=== PATIENT | female | born 2000 | race Caucasian/White ===

== ENCOUNTER 2019-11-12 18:05 | Emergency (ER) | payer OTHER, SELFPAY ==
[2019-11-12 18:08] VITALS: BP 116/75; PULSE 116; RESP 18; TEMP 37.1; O2SAT 98
--- NOTE | 2019-11-12 18:57 | ED.GENADULT ---
HPI - General Adult General Chief complaint: Abdominal Pain Stated complaint: LEFT KIDNEY PAIN FEVER MIGRAINE RED SPOTS ON BODY Time Seen by Provider: 11/12/19 18:37 Source: patient Mode of arrival: Ambulatory Limitations: no limitations History of Present Illness HPI narrative: 19-year-old female with frequent urinary tract infections was never been seen at this facility in the past here for evaluation which she thinks is a urinary tract infection. Started having dysuria couple days ago. Has lower back pain. Some nausea but no vomiting. States she has had kidney infections in the past. Today she started to develop subjective fevers and body aches. Has been taking azo for her symptoms. Also states she has a history of migraines. She states that she feels like she is having a migraine currently. No neck pain. States it feels like going for typical migraines. She is also having a rash on the palms of her hands and soles of her feet. This does not seem to be associated with the other to issues that brought her to the emergency department. States she has had this off and on since she was 14 years old. Has not seen Dermatology. States the rash is itchy. Not painful. No new exposures. Related Data Previous Rx's Medication Instructions Recorded [id number]-[id number] 1 cap PO Q4-6H PRN #10 cap 11/12/19 [Fioricet] sulfamethoxazole-trimethoprim 1 tab PO BID 14 Days #28 tab 11/12/19 [Bactrim DS] Review of Systems Constitutional Constitutional: Reports body ache(s), Reports chills, Reports fatigue, Reports fever(s) and Reports headache(s) Eyes Eyes: Denies itchy eyes ENT Ears, Nose, Mouth, and Throat: Reports headache(s) Cardiovascular Cardiovascular: Denies chest pain and Denies dyspnea Respiratory Respiratory: Denies dyspnea Gastrointestinal Gastrointestinal: Denies abdominal pain, Denies change in bowel habits, Reports nausea and Denies vomiting Genitourinary Genitourinary: Reports dysuria, Reports urinary hesitancy and Reports urinary urgency Genitourinary: Reports dysuria, Reports urinary hesitancy and Reports urinary urgency Musculoskeletal Musculoskeletal: Denies arthralgias, Reports back pain (Lower back) and Denies myalgias Integumentary/Breasts Skin/Breast: Reports rash Neurologic Neurologic: Denies behavioral changes and Reports headache(s) Psychiatric Psychiatric: Denies anxiety and Denies behavioral changes Endocrine Endocrine: Reports fatigue Hematologic/Lymphatic Hematologic/Lymphatic: Denies easy bleeding and Denies easy bruising Allergic/Immunologic Allergic/Immunologic: Denies urticaria and Denies itchy eyes Patient History Medical History Migraines (Acute) Social History marital status: lives independently: Yes Exam Initial Vital Signs Initial Vital Signs: Vital Signs Temperature 98.8 F 11/12/19 18:08 Pulse Rate 116 H 11/12/19 18:08 Respiratory Rate 18 11/12/19 18:08 Blood Pressure 116/75 11/12/19 18:08 Pulse Oximetry 98 11/12/19 18:08 Const General: cooperative and comfortable Limitations: mental status not altered HENMT Head: normal to inspection and normocephalic Resp Effort & Inspection: normal respiratory effort Auscultation: clear to auscultation bilaterally Cardio Rate: tachycardic Rhythm: regular rhythm GI Inspection: non-distended Palpation: soft, No firm and No tender Back/Spine/Pelvis Back: No CVA tenderness Skin Other: Patient with well-defined areas of redness located on both the palms of her hands with left being greater than right. No blistering. No pustules. Somewhere parents located on the soles of her feet. Neuro General: patient alert and patient awake Cognition: normal cognition Speech: speech normal Extrem General: normal to inspection and capillary refill normal Psych Appearance: grossly normal and well kempt Course Orders Ordered: ED Orders 11/12/19 18:24 Urine Culture Stat Urine Microscopic Stat 11/12/19 18:29 EKG-12 Lead Stat 11/12/19 19:25 Complete Blood Count AUTO DIFF Stat Comprehensive Metabolic Panel Stat Lipase Stat Partial Thromboplastin Time Stat Prothrombin Time INR Stat Discontinued Medications Acetaminophen/Butalbital/Caffeine (Fioricet) 1 each PO NOW ONE Stop: 11/12/19 18:58 Last Admin: 11/12/19 19:05 Dose: 1 each Documented by: TARIQ Trimethoprim/Sulfamethoxazole (Bactrim Ds) 1 tab PO NOW ONE Stop: 11/12/19 18:58 Last Admin: 11/12/19 19:05 Dose: 1 tab Documented by: TARIQ Vital Signs Vital signs: Vital Signs - 8 hr 11/12/19 19:56 Pulse Rate 75 Respiratory Rate 16 Blood Pressure 100/57 L Pulse Oximetry 100 Medical Decision Making Lab Data Lab results reviewed: Yes I reviewed the patient's lab results. Result diagrams: 11/12/19 19:25 11/12/19 19:25 Labs: Lab Results 11/12/19 11/12/19 11/12/19 Range/Units 18:24 19:25 19:25 WBC 13.5 H (4.5-11.0) X10^3/uL RBC 4.12 (4.0-5.2) X10^6/uL Hgb 12.9 (12.0-16.0) g/dL Hct 37.7 (36-46) % MCV 91.3 (80-100) fL MCH 31.4 (26-34) PG MCHC 34.4 (30-36) % RDW 12.9 (11.6-14.8) % Plt Count 285 (150-400) X10^3/uL Neut % (Auto) 72.1 (50-75) % Lymph % (Auto) 20.2 L (25-40) % [place] % (Auto) 6.8 (3-14) % Eos % (Auto) 0.2 L (2-4) % Baso % (Auto) 0.7 (0-2) % Neut # (Auto) 9800 H (2453-7117) /uL Lymph # (Auto) 2700 (5552-7092) /uL [place] # (Auto) 900 (0-900) /uL Eos # (Auto) 0 (0-450) /uL Baso # (Auto) 100 (0-100) /uL PT 14.9 H (10.1-12.7) SECONDS INR 1.3 (0.9-1.3) APTT 29 (26.4-36.2) SECONDS Sodium (137-145) mmol/L Potassium (3.4-5.1) mmol/L Chloride (98-107) mmol/L Carbon Dioxide (22-32) mmol/L BUN (7-17) mg/dL Creatinine (0.52-1.04) mg/dL Estimated GFR (>60) mL/min BUN/Creatinine Ratio (6-22) Glucose (70-100) mg/dL Calcium (8.4-10.2) mg/dL Total Bilirubin (0.2-1.3) mg/dL AST (14-36) IU/L ALT (<35) IU/L Alkaline Phosphatase (38-126) U/L Total Protein (6.3-8.2) g/dL Albumin (3.5-5.0) g/dL Globulin (1.7-4.1) g/dL Albumin/Globulin Ratio (1.0-2.8) Lipase (23-300) U/L Urine RBC 1-5/hpf (0-5/HPF) Urine WBC 10-30/hpf H (0-5/HPF) Ur Squamous Epith Cells 1-5 /hpf (0-5/HPF) Amorphous Sediment 1+ Urine Bacteria Many (>30) H (None) Urine Mucus 2+ H (Negative) Ur Culture Indicated? Specimen cultured 11/12/19 Range/Units 19:25 WBC (4.5-11.0) X10^3/uL RBC (4.0-5.2) X10^6/uL Hgb (12.0-16.0) g/dL Hct (36-46) % MCV (80-100) fL MCH (26-34) PG MCHC (30-36) % RDW (11.6-14.8) % Plt Count (150-400) X10^3/uL Neut % (Auto) (50-75) % Lymph % (Auto) (25-40) % [place] % (Auto) (3-14) % Eos % (Auto) (2-4) % Baso % (Auto) (0-2) % Neut # (Auto) (5491-3962) /uL Lymph # (Auto) (6878-4269) /uL [place] # (Auto) (0-900) /uL Eos # (Auto) (0-450) /uL Baso # (Auto) (0-100) /uL PT (10.1-12.7) SECONDS INR (0.9-1.3) APTT (26.4-36.2) SECONDS Sodium 137 (137-145) mmol/L Potassium 3.3 L (3.4-5.1) mmol/L Chloride 102 (98-107) mmol/L Carbon Dioxide 25 (22-32) mmol/L BUN 11 (7-17) mg/dL Creatinine 0.81 (0.52-1.04) mg/dL Estimated GFR > 60.0 (>60) mL/min BUN/Creatinine Ratio 13.6 (6-22) Glucose 103 H (70-100) mg/dL Calcium 9.1 (8.4-10.2) mg/dL Total Bilirubin 0.6 (0.2-1.3) mg/dL AST 16 (14-36) IU/L ALT 12 (<35) IU/L Alkaline Phosphatase 70 (38-126) U/L Total Protein 7.7 (6.3-8.2) g/dL Albumin 4.1 (3.5-5.0) g/dL Globulin 3.6 (1.7-4.1) g/dL Albumin/Globulin Ratio 1.1 (1.0-2.8) Lipase 45 (23-300) U/L Urine RBC (0-5/HPF) Urine WBC (0-5/HPF) Ur Squamous Epith Cells (0-5/HPF) Amorphous Sediment Urine Bacteria (None) Urine Mucus (Negative) Ur Culture Indicated? Point of Care Testing Test Results Negative Urine Dip Bedside Urine Glucose 100 mg/dl Bedside Urine Bilirubin + 1 Bedside Urine Ketone +++ 80 Urine Specific [place] 1.020 Bedside Urine Occult Blood ++ Bedside Urine pH 6.0 Bedside Urine Protein ++ 100 Bedside Urine Urobilinogen 1+ 2mg Bedside Urine Nitrite + Positive Bedside Urine Leukocytes ++ 125 Esterase Point of care testing: Point of Care Testing Test Results Negative Urine Dip Bedside Urine Glucose 100 mg/dl Bedside Urine Bilirubin + 1 Bedside Urine Ketone +++ 80 Urine Specific [place] 1.020 Bedside Urine Occult Blood ++ Bedside Urine pH 6.0 Bedside Urine Protein ++ 100 Bedside Urine Urobilinogen 1+ 2mg Bedside Urine Nitrite + Positive Bedside Urine Leukocytes ++ 125 Esterase MDM Narrative Medical decision making narrative: Patient's history and physical exam is consistent with the urinary tract infection. Given her lower back pain and her history there is concerned about pyelonephritis that she states that she has had ?kidney infections? several times in the past. She does not know what antibiotic she has been on in the past. Review of her medical record does not show any prior urine cultures in our system. Patient was given a dose of antibiotics here in the ER and she was able to tolerate it without vomiting. Will give her a prescription for antibiotics with dosages consistent with treatment of pyelonephritis. A urine culture was pending at the time of her discharge. Patient was informed that we would contact her if we needed to change any antibiotics based on this culture. Patient is also having headache. I do suspect that this is brought on by the infection that she is having in her urinary symptoms. Low suspicion for meningitis as she has no other symptoms consistent with this. Patient is also having a rash on her hands and soles of her feet. This is not new for her. Unsure the exact etiology of the rash however given her history with regard to this I feel that it is unrelated with the other issues that brought her in today. Informed her that she needed talk with her primary doctor about potentially getting in to see a casino cage cashier. Patient was given strict return precautions and follow-up instructions. She expressed understanding and agreement. Discharge Plan Departure Patient Disposition: Home Clinical Impression: Pyelonephritis, Rash Headache Qualifiers: Headache type: unspecified Headache chronicity pattern: unspecified pattern Intractability: not intractable Qualified Code(s): R51 - Headache Discharge Date/Time: 11/12/19 19:56 Instructions: DI for Kidney Infection Activity Restrictions/Additional Instructions: You were given your 1st dose of antibiotics here this evening in the emergency department. Fill the prescription and start taking it tomorrow morning as directed. A urine culture was pending at the time of your discharge. If for some reason we need to switch you to a different antibiotic we will call to let you know. I recommend that you talk with your primary doctor about a referral to see dermatology. I also recommend that you contact the [facility] office tomorrow over on face to clarify who your primary doctor is. Return to the emergency department for any new or worsening symptoms Prescriptions: New [id number]-lcwyacjmcwukr-[id number] [Fioricet] 50-300-40 mg capsule 1 cap PO Q4-6H PRN (Reason: pain) Qty: 10 RF: 0 sulfamethoxazole-trimethoprim [Bactrim DS] 800-160 mg tablet 1 tab PO BID 14 Days Qty: 28 RF: 0
[2019-11-12] MEDS: BUTALB/APAP/CAFFEINE 50/325/40 TABLET 1 EACH PO (19:05)
[2019-11-12] MEDS: TRIMETH/SULFA 160/800 (DS) TABLET 1 TAB PO (19:05)
[2019-11-12 19:30] LABS: Add Manual Diff / Slide Review NO; Basophils Absolute Auto 100 /uL (0-100); Basophils Percent Auto 0.7 % (0-2); Eosinophils Absolute Auto 0 /uL (0-450); Eosinophils Percent Auto 0.2 % (2-4); Hematocrit 37.7 % (36-46); Hemoglobin 12.9 g/dL (12.0-16.0); Lymphocytes Absolute Auto 2700 /uL (1100-4500); Lymphocytes Percent Auto 20.2 % (25-40); Mean Corpuscular HGB Conc 34.4 % (30-36); Mean Corpuscular Hemoglobin 31.4 PG (26-34); Mean Corpuscular Volume 91.3 fL (80-100); Monocytes Absolute Auto 900 /uL (0-900); Monocytes Percent Auto 6.8 % (3-14); Neutrophils Absolute Auto 9800 /uL (1500-7000); Neutrophils Percent Auto 72.1 % (50-75); Platelet Count 285 X10^3/uL (150-400); Red Blood Cell Count 4.12 X10^6/uL (4.0-5.2); Red Cell Distribution Width 12.9 % (11.6-14.8); White Blood Cell Count 13.5 X10^3/uL (4.5-11.0)
[2019-11-12 19:32] LABS: Amorphous Sediment Urine 1+; RBC Urine 1-5/HPF (0-5/HPF); Squamous Epithelial Cell Urine 1-5 /HPF (0-5/HPF); WBC Urine 10-30/HPF (0-5/HPF)
[2019-11-12 19:33] LABS: Bacteria Urine Many (>30); Culture Indicated Urine Specimen Cultured; Mucus Urine 2+ (Negative)
[2019-11-12 19:37] LABS: INR 1.3 (0.9-1.3); Prothrombin Time 14.9 SECONDS (10.1-12.7)
[2019-11-12 19:40] LABS: PTT Partial Thromboplastin Tim 29 SECONDS (26.4-36.2)
[2019-11-12 19:41] LABS: Alanine Aminotransferase 12 IU/L (<35); Albumin 4.1 g/dL (3.5-5.0); Albumin Globulin Ratio 1.1 (1.0-2.8); Alkaline Phosphatase 70 U/L (38-126); Aspartate Aminotransferase 16 IU/L (14-36); BUN Creatinine Ratio 13.6 (6-22); Bilirubin Total 0.6 mg/dL (0.2-1.3); Blood Urea Nitrogen 11 mg/dL (7-17); Calcium 9.1 mg/dL (8.4-10.2); Carbon Dioxide 25 mmol/L (22-32); Chloride 102 mmol/L (98-107); Estimated Glomerular Filt Rate > 60.0 mL/min (>60); Globulin 3.6 g/dL (1.7-4.1); Glucose 103 mg/dL (70-100); HEMOLYSIS < 15 (0-50); Lipase 45 U/L (23-300); Potassium 3.3 mmol/L (3.4-5.1); Sodium 137 mmol/L (137-145); Total Protein 7.7 g/dL (6.3-8.2)
[2019-11-12 19:56] VITALS: BP 100/57; PULSE 75; RESP 16; O2SAT 100
== END 2019-11-12 19:56 | disposition home or self-care (01) ==
PROVIDERS: Emergency Provider Emergency Medicine
DX: N12 Tubulo-interstitial nephritis, not specified as acute or chronic (principal); R21 Rash and other nonspecific skin eruption; R51 Headache; R11.0 Nausea
CPT/HCPCS: 80053; 81003; 81015; 81025; 83690; 85025; 85610; 85730; 87077; 87086; 87186; 99283

== ENCOUNTER 2019-12-03 07:05 | Emergency (ER) | payer OTHER, SELFPAY ==
[2019-12-03 07:13] VITALS: BP 116/67; PULSE 78; RESP 20; TEMP 36.6; O2SAT 97; BMI 31.5
--- NOTE | 2019-12-03 07:48 | ED.GENADULT ---
HPI - General Adult General Chief complaint: Urogenital-Female Stated complaint: LOWER BACK PAIN/STOMACH Time Seen by Provider: 12/03/19 07:13 Source: patient Mode of arrival: Ambulatory Limitations: no limitations History of Present Illness HPI narrative: Otherwise healthy 19-year-old female who was seen here in the emergency department a little less than 1 month ago by myself for very similar symptoms that brought her into the emergency department today. During that time patient was having a headache which was very typical for her and also having symptoms concerning for a UTI. She was subsequently treated for pyelonephritis given her presenting symptoms. Was sent home with Bactrim. She states she finished that antibiotic just recently. She stated that this morning she started having the same symptoms that brought her into the emergency department where she was diagnosed with UTI. No review of the patient's visit at that time does show nitrite positive urine. Subsequent urine culture showed greater than 100,000 colony-forming units of E coli that was susceptible to Bactrim. Patient reports no fevers. Is having nausea. Related Data Previous Rx's Medication Instructions Recorded [id number]-[id number] 1 cap PO Q4-6H PRN #10 cap 11/12/19 [Fioricet] cephalexin [Keflex] 500 mg PO BID 7 Days #14 cap 12/03/19 phenazopyridine [Pyridium] 100 mg PO TID PRN #6 tab 12/03/19 Review of Systems Constitutional Constitutional: Denies fever(s) Cardiovascular Cardiovascular: Denies chest pain and Denies dyspnea Respiratory Respiratory: Denies dyspnea Gastrointestinal Gastrointestinal: Reports abdominal pain (Lower abdomen), Reports diarrhea, Reports nausea and Denies vomiting Genitourinary Genitourinary: Reports dysuria and Reports urinary urgency Genitourinary: Reports dysuria and Reports urinary urgency Musculoskeletal Musculoskeletal: Reports back pain (Lower back) and Reports myalgias Integumentary/Breasts Skin/Breast: Denies rash Neurologic Neurologic: Denies behavioral changes Psychiatric Psychiatric: Denies behavioral changes Hematologic/Lymphatic Hematologic/Lymphatic: Denies easy bleeding and Denies easy bruising Patient History Medical History Migraines (Acute) Social History marital status: lives independently: Yes Smoking Status: Current every day smoker Smoking Status: Current every day smoker alcohol intake frequency: a few times a week Substance Use Type: marijuana Exam Initial Vital Signs Initial Vital Signs: Vital Signs Temperature 97.8 F 12/03/19 07:13 Pulse Rate 78 12/03/19 07:13 Respiratory Rate 20 12/03/19 07:13 Blood Pressure 116/67 12/03/19 07:13 Pulse Oximetry 97 12/03/19 07:13 Const General: cooperative and comfortable Limitations: mental status not altered HENMA Head: normal to inspection and normocephalic Resp Effort & Inspection: normal respiratory effort Auscultation: clear to auscultation bilaterally Cardio Rate: regular rate Rhythm: regular rhythm GI Inspection: non-distended Palpation: soft, No firm and tender (Bilateral lower abdomen) Back/Spine/Pelvis Back: No CVA tenderness Other: Paraspinal tenderness lumbar region Skin Lesions: no lesions Rashes: no rashes Neuro General: patient alert and patient awake Cognition: normal cognition Speech: speech normal Extrem General: normal to inspection and capillary refill normal Psych Appearance: grossly normal and well kempt Course Orders Ordered: ED Orders 12/03/19 07:58 Basic Metabolic Panel Stat Complete Blood Count AUTO DIFF Stat 12/03/19 08:36 Urine Culture Stat Discontinued Medications Ketorolac Tromethamine (Toradol) 30 mg IM NOW ONE Stop: 12/03/19 08:09 Last Admin: 12/03/19 08:16 Dose: 30 mg Documented by: GUNNAR Vital Signs Vital signs: Vital Signs - 8 hr 12/03/19 07:13 Temperature 97.8 F Pulse Rate 78 Respiratory Rate 20 Blood Pressure 116/67 Pulse Oximetry 97 Medical Decision Making Medical Records Medical records reviewed: Yes I reviewed the patient's medical records. Lab Data Lab results reviewed: Yes I reviewed the patient's lab results. Result diagrams: 12/03/19 07:58 12/03/19 07:58 Labs: Lab Results 12/03/19 12/03/19 Range/Units 07:58 07:58 WBC 12.2 H (4.5-11.0) X10^3/uL RBC 4.43 (4.0-5.2) X10^6/uL Hgb 13.9 (12.0-16.0) g/dL Hct 40.7 (36-46) % MCV 91.9 (80-100) fL MCH 31.4 (26-34) PG MCHC 34.1 (30-36) % RDW 13.6 (11.6-14.8) % Plt Count 239 (150-400) X10^3/uL Neut % (Auto) 75.0 (50-75) % Lymph % (Auto) 17.8 L (25-40) % [place] % (Auto) 5.0 (3-14) % Eos % (Auto) 1.7 L (2-4) % Baso % (Auto) 0.5 (0-2) % Neut # (Auto) 9100 H (6976-3546) /uL Lymph # (Auto) 2200 (9730-8851) /uL [place] # (Auto) 600 (0-900) /uL Eos # (Auto) 200 (0-450) /uL Baso # (Auto) 100 (0-100) /uL Sodium 137 (137-145) mmol/L Potassium 4.0 (3.4-5.1) mmol/L Chloride 106 (98-107) mmol/L Carbon Dioxide 25 (22-32) mmol/L BUN 8 (7-17) mg/dL Creatinine 0.87 (0.52-1.04) mg/dL Estimated GFR > 60.0 (>60) mL/min BUN/Creatinine Ratio 9.2 (6-22) Glucose 103 H (70-100) mg/dL Calcium 9.0 (8.4-10.2) mg/dL Point of Care Testing Test Results Negative Urine Dip Bedside Urine Glucose Negative Bedside Urine Bilirubin + 1 Bedside Urine Ketone - Negative Urine Specific [place] 1.030 Bedside Urine Occult Blood - Negative Bedside Urine pH 6.0 Bedside Urine Protein +/- 15 Bedside Urine Urobilinogen - Negative Bedside Urine Nitrite - Negative Bedside Urine Leukocytes - Negative Esterase Point of care testing: Point of Care Testing Test Results Negative Urine Dip Bedside Urine Glucose Negative Bedside Urine Bilirubin + 1 Bedside Urine Ketone - Negative Urine Specific [place] 1.030 Bedside Urine Occult Blood - Negative Bedside Urine pH 6.0 Bedside Urine Protein +/- 15 Bedside Urine Urobilinogen - Negative Bedside Urine Nitrite - Negative Bedside Urine Leukocytes - Negative Esterase MDM Narrative Medical decision making narrative: Patient to complete course of Bactrim. Does have leukocytosis today. Afebrile. Does have dysuria. Review the culture shows E coli. The Bactrim that she was placed on prior should have treated her infection however she seems to have a return of her symptoms. Had a discussion with her regarding options to include just treating symptoms versus starting her on another course of antibiotics. She does not have a primary doctor. The plan BS start her on another course of antibiotics. We will change the antibiotic. I feel that her symptoms are less likely pyelonephritis today so we will not treat with that length of symptoms. Patient was given a phone number to contact the health lands resource manager to establish a primary provider. She was given return precautions. She expressed understanding and agreement. Discharge Plan Departure Patient Disposition: Home Clinical Impression: Urinary tract infection Qualifiers: Urinary tract infection type: acute cystitis Hematuria presence: without hematuria Qualified Code(s): N30.00 - Acute cystitis without hematuria Instructions: DI for Urinary Tract Infection (UTI) Activity Restrictions/Additional Instructions: Take the antibiotics as directed. Recommend you contact the health lands resource manager at [phone] here in the hospital to help you establish a primary provider. A urine culture was pending at the time your discharge. If we need to change any antibiotics we will call you. Return to the emergency department for any new or worsening symptoms Prescriptions: New cephalexin [Keflex] 500 mg capsule 500 mg PO BID 7 Days Qty: 14 RF: 0 phenazopyridine [Pyridium] 100 mg tablet 100 mg PO TID PRN (Reason: pain) Qty: 6 RF: 0 No Action [id number]-znydicqnyybpb-lcwv [Fioricet] 50-300-40 mg capsule 1 cap PO Q4-6H PRN (Reason: pain) Qty: 10 RF: 0
[2019-12-03 08:05] LABS: Add Manual Diff / Slide Review NO; Basophils Absolute Auto 100 /uL (0-100); Basophils Percent Auto 0.5 % (0-2); Eosinophils Absolute Auto 200 /uL (0-450); Eosinophils Percent Auto 1.7 % (2-4); Hematocrit 40.7 % (36-46); Hemoglobin 13.9 g/dL (12.0-16.0); Lymphocytes Absolute Auto 2200 /uL (1100-4500); Lymphocytes Percent Auto 17.8 % (25-40); Mean Corpuscular HGB Conc 34.1 % (30-36); Mean Corpuscular Hemoglobin 31.4 PG (26-34); Mean Corpuscular Volume 91.9 fL (80-100); Monocytes Absolute Auto 600 /uL (0-900); Neutrophils Absolute Auto 9100 /uL (1500-7000); Platelet Count 239 X10^3/uL (150-400); Red Blood Cell Count 4.43 X10^6/uL (4.0-5.2); Red Cell Distribution Width 13.6 % (11.6-14.8); White Blood Cell Count 12.2 X10^3/uL (4.5-11.0)
[2019-12-03] MEDS: KETOROLAC 60 MG/2 ML VIAL 30 MG IM (08:16)
[2019-12-03 08:18] LABS: BUN Creatinine Ratio 9.2 (6-22); Blood Urea Nitrogen 8 mg/dL (7-17); Carbon Dioxide 25 mmol/L (22-32); Chloride 106 mmol/L (98-107); Estimated Glomerular Filt Rate > 60.0 mL/min (>60); Glucose 103 mg/dL (70-100); HEMOLYSIS 17 (0-50); Sodium 137 mmol/L (137-145)
[2019-12-03 08:51] VITALS: BP 109/62; PULSE 77; RESP 18; O2SAT 99
== END 2019-12-03 08:57 | disposition home or self-care (01) ==
PROVIDERS: Emergency Provider Emergency Medicine
DX: N30.00 Acute cystitis without hematuria (principal); R11.0 Nausea; M54.5 Low back pain; R10.30 Lower abdominal pain, unspecified
CPT/HCPCS: 36415; 80048; 81003; 81025; 85025; 96372; 99283; J1885